=== PATIENT | male | born 1985 | race Caucasian/White ===

== ENCOUNTER 2019-07-22 03:17 | Emergency (ER) | payer SELFPAY ==
[2019-07-22 04:14] LABS: ALBUMIN 4.7 g/dL (3.5-5.0); ALKALINE PHOSPHATASE 61 U/L (38-126); ANION GAP 12.5 MEQ/L (5-15); BLOOD UREA NITROGEN 20 mg/dL (9-20); CHLORIDE 106 mmol/L (98-107); Calcium 9.2 mg/dL (8.4-10.2); Carbon Dioxide 27 mmol/L (22-30); Creatinine 1 0.89 mg/dL (0.66-1.25); Glucose 93 mg/dL (74-106); Potassium 3.9 mmol/L (3.5-5.1); SGOT/AST 31 U/L (17-59); SGPT/ALT 22 U/L (0-50); SODIUM 142 mmol/L (137-145); Total Protein 8.3 g/dL (6.3-8.2)
[2019-07-22 04:16] LABS: ACETAMINOPHEN < 10 ug/ml (10-30); ETHYL ALCOHOL < 10 mg/dL (0-10); SALICYLATE < 1.0 mg/dL (2-20)
[2019-07-22 04:19] LABS: Bacteria RARE /HPF (NEGATIVE); Mucus SLIGHT /HPF (NEGATIVE); WBC 0-2 /HPF (0-5)
[2019-07-22 04:20] LABS: Appearance CLEAR (CLEAR); Bilirubin NEGATIVE (NEGATIVE); Blood NEGATIVE Ery/ul (0-5); Glucose NEGATIVE (NEGATIVE); Ketones NEGATIVE (NEGATIVE); Leukocyte Esterase NEGATIVE (NEGATIVE); Nitrite NEGATIVE (NEGATIVE); Protein,Urine Dip NEGATIVE (Negative); Specific Gravity 1.025 (1.005-1.025); Urobilinogen NORMAL mg/dL (0-1)
[2019-07-22 04:22] LABS: Absolute Neutrophil Ct (ANC) 3.28 (1.4-6.9); BASOPHIL % 0.8 % (0.0-0.4); Basophil (Absolute #) 0.05 (0-0.4); Eosinophil (Absolute #) 0.12 (0-0.5); Hematocrit 46.1 % (42-50); Lymphocyte (Absolute #) 2.12 (1.0-4.6); Lymphocytes % 34.5 % (24.0-44.0); Mean Cell Volume 94.3 fl (78-100); Mean Corpuscular Hemoglobin 30.7 pg (26-32); Mean Corpuscular Hgb Concent. 32.5 g/dl (32-36); Mean Platelet Volume 10.5 fl (7.5-11.0); Monocyte (Absolute #) 0.57 (0.0-1.3); Monocytes % 9.3 % (0.0-12.0); Neutrophil % 53.4 % (36.0-66.0); Platelet Count 330 K/mm3 (150-450); Red Blood Count 4.89 M/mm3 (4.1-5.6); Red Cell Distribution Width 13.3 % (11.5-14.0); White Blood Count 6.1 K/mm3 (4.0-10.5)
--- NOTE | 2019-07-22 04:22 | ERPHSYRPT ---
- History of Present Illness Source: patient Exam Limitations: no limitations Patient Subjective Stated Complaint: . Triage Nursing Assessment: . Timing/Duration: today Severity of Symptoms-Max: moderate Severity of Symptoms-Current: mild Context related to: other Suicidal thoughts: other (Patient denies homicidal suicidal ideation.) Associated Symptoms: confused, hallucinating (Patient demonstrating visual and auditory hallucination.) Previous symptoms: no recent treatment <ANIYAH MOSCOSO - Last Filed: 07/22/19 05:21> <HARJINDER BANDA - Last Filed: 07/22/19 09:00> - History of Present Illness Time Seen by Provider: 07/22/19 03:30 Physician History: Patient is a 33-year-old male brought into our ED by police department. Patient was apparently found walking on the side of the road. Patient was questioned and fled from police. Sahil ensued. Patient was apprehended. Patient was arrested and brought to our ED for further evaluation. Patient unable to answer questions appropriately. Patient appears confused. No trauma. No fever. Patient denies chest pain. No shortness of breath. Symptoms are mild to moderate intensity. No specific worsening or improving factors. Patient voices no other complaints at this time. (ANIYAH MOSCOSO) Travel Risk - International Travel Have you traveled outside of the country in past 3 weeks: No Have you or anyone close to you been diagnosed with or: No Do your reside in a community with a known COVID-19 case?: Yes If Yes where:: [facility] - Coronavirus Screening Has patient experienced Coronavirus symptoms: No <ANIYAH MOSCOSO - Last Filed: 07/22/19 05:21> - Past Medical History Pertinent Past Medical History: (unknown) - Past Surgical History Past Surgical History: (unknown) - Social History Smoking Status: Unknown if ever smoked <ANIYAH MOSCOSO - Last Filed: 07/22/19 05:21> - Review of Systems Constitutional: No Symptoms, No Fever, No Chills Eyes: No Symptoms Ears, Nose, & Throat: No Symptoms Respiratory: No Symptoms, No Cough, No Dyspnea Cardiac: No Symptoms, No Chest Pain, No Edema, No Syncope Abdominal/Gastrointestinal: No Symptoms, No Abdominal Pain, No Nausea, No Vomiting, No Diarrhea Genitourinary Symptoms: No Symptoms, No Dysuria Musculoskeletal: No Symptoms, No Back Pain, No Neck Pain Skin: No Symptoms, No Rash Neurological: No Symptoms, No Dizziness, No Focal Weakness, No Sensory Changes Psychological: No Symptoms Endocrine: No Symptoms Hematologic/Lymphatic: No Symptoms Immunological/Allergic: No Symptoms All Other Systems: Reviewed and Negative <ANIYAH MOSCOSO Filed: 07/22/19 05:21> - Physical Exam General Appearance: no apparent distress Eyes, Ears, Nose, Throat Exam: normal ENT inspection, moist mucous membranes Neck Exam: normal inspection, non-tender, supple, No Brudzinski, No Kernig's, No meningismus, No lymphadenopathy (R) Respiratory Exam: normal breath sounds, lungs clear, No respiratory distress, No airway intact Cardiovascular Exam: regular rate/rhythm, normal heart sounds, normal peripheral pulses, No murmur, No friction rub, No edema Gastrointestinal/Abdominal Exam: soft, No tenderness, No distention Extremities Exam: normal inspection, normal range of motion, No evidence of injury, No edema Current Suicidality: denies suicide plan Neurological Exam: alert, green prize packer II-XII nml as tested, oriented x 3 Appearance: appropriate appearance (Patient is not wearing a shirt. He has long hair and appears disheveled. foul body odor.), denies illness, impaired insight, No appropriate insight Behavior/Eye Contact/Speech: alert & cooperative, No avoids eye contact Thoughts/Hallucinations: auditory hallucinations, flight of ideas, No normal thought pattern, No no apparent hallucination Skin Exam: normal color, warm, dry, No rash SpO2 Interpretation: normal SpO2: 100 O2 Delivery: Room Air <ANIYAH MOSCOSO Filed: 07/22/19 05:21> - Nursing Vital Signs Nursing Vital Signs: Initial Vital Signs Temperature 98.0 F 07/22/19 03:18 Pulse Rate 103 H 07/22/19 03:18 Respiratory Rate 18 07/22/19 03:18 Blood Pressure 137/89 07/22/19 03:18 O2 Sat by Pulse Oximetry 100 07/22/19 03:18 Pain Scale Pain Intensity 0 - Course Nursing assessment & vital signs reviewed: Yes EKG Interpreted by Me: RATE (73), Sinus Rhythm, NORMAL AXIS, NORMAL INTERVALS <ANIYAH MOSCOSO Filed: 07/22/19 05:21> Ordered Tests: Active Orders 24 hr Category Date Time Status EKG-ER Only STAT Care 07/22/19 03:23 Active ACETAMINOPHEN Stat Lab 07/22/19 03:49 Completed CBC W DIFF Stat Lab 07/22/19 03:49 Completed CMP Stat Lab 07/22/19 03:49 Completed ETHYL ALCOHOL Stat Lab 07/22/19 03:49 Completed SALICYLATE Stat Lab 07/22/19 03:49 Completed UA W/RFX UR CULTURE Stat Lab 07/22/19 03:54 Completed Urine Triage Profile Stat Lab 07/22/19 03:54 Completed Lab/Rad Data: Laboratory Result Diagrams 07/22/19 03:49 07/22/19 03:49 Laboratory Results 07/22/19 07/22/19 07/22/19 Range/Units 03:54 03:54 03:49 WBC (4.0-10.5) K/mm3 RBC (4.1-5.6) M/mm3 Hgb (12.5-18.0) gm/dl Hct (42-50) % MCV (78-100) fl MCH (26-32) pg MCHC (32-36) g/dl RDW (11.5-14.0) % Plt Count (150-450) K/mm3 MPV (7.5-11.0) fl Gran % (36.0-66.0) % Eos # (Auto) (0-0.5) Absolute Lymphs (auto) (1.0-4.6) Absolute Monos (auto) (0.0-1.3) Lymphocytes % (24.0-44.0) % Monocytes % (0.0-12.0) % Eosinophils % (0.00-5.0) % Basophils % (0.0-0.4) % Absolute Granulocytes (1.4-6.9) Basophils # (0-0.4) Sodium 142 (137-145) mmol/L Potassium 3.9 (3.5-5.1) mmol/L Chloride 106 (98-107) mmol/L Carbon Dioxide 27 (22-30) mmol/L Anion Gap 12.5 (5-15) MEQ/L BUN 20 (9-20) mg/dL Creatinine 0.89 (0.66-1.25) mg/dL Estimated GFR > 60.0 ML/MIN Glucose 93 (74-106) mg/dL Calcium 9.2 (8.4-10.2) mg/dL Total Bilirubin 0.50 (0.2-1.3) mg/dL AST 31 (17-59) U/L ALT 22 (0-50) U/L Alkaline Phosphatase 61 (38-126) U/L Serum Total Protein 8.3 H (6.3-8.2) g/dL Albumin 4.7 (3.5-5.0) g/dL Urine Color YELLOW (YELLOW) Urine Appearance CLEAR (CLEAR) Urine pH 6.0 (5-6) Ur Specific [place] 1.025 (1.005-1.025) Urine Protein NEGATIVE (Negative) Urine Ketones NEGATIVE (NEGATIVE) Urine Blood NEGATIVE (0-5) Ino/ul Urine Nitrite NEGATIVE (NEGATIVE) Urine Bilirubin NEGATIVE (NEGATIVE) Urine Urobilinogen NORMAL (0-1) mg/dL Ur Leukocyte Esterase NEGATIVE (NEGATIVE) Urine WBC (Auto) 0-2 (0-5) /HPF Urine RBC (Auto) NONE (0-2) /HPF U Epithel Cells (Auto) NONE (FEW) /HPF Urine Bacteria (Auto) RARE (NEGATIVE) /HPF Urine Mucus (Auto) SLIGHT (NEGATIVE) /HPF Urine Culture Reflexed NO (NO) Urine Glucose NEGATIVE (NEGATIVE) mg/dL Salicylates < 1.0 L (2-20) mg/dL Urine Opiates Level NEGATIVE (NEGATIVE) Ur Methadone NEGATIVE (NEGATIVE) Acetaminophen < 10 L (10-30) ug/ml Urine Barbiturates NEGATIVE (NEGATIVE) Ur Phencyclidine (PCP) NEGATIVE (NEGATIVE) Urine Amphetamine POSITIVE (NEGATIVE) U Benzodiazepine Level NEGATIVE (NEGATIVE) Urine Cocaine NEGATIVE (NEGATIVE) Urine Marijuana (THC) NEGATIVE (NEGATIVE) Ethyl Alcohol < 10 (0-10) mg/dL 07/22/19 Range/Units 03:49 WBC 6.1 (4.0-10.5) K/mm3 RBC 4.89 (4.1-5.6) M/mm3 Hgb 15.0 (12.5-18.0) gm/dl Hct 46.1 (42-50) % MCV 94.3 (78-100) fl MCH 30.7 (26-32) pg MCHC 32.5 (32-36) g/dl RDW 13.3 (11.5-14.0) % Plt Count 330 (150-450) K/mm3 MPV 10.5 (7.5-11.0) fl Gran % 53.4 (36.0-66.0) % Eos # (Auto) 0.12 (0-0.5) Absolute Lymphs (auto) 2.12 (1.0-4.6) Absolute Monos (auto) 0.57 (0.0-1.3) Lymphocytes % 34.5 (24.0-44.0) % Monocytes % 9.3 (0.0-12.0) % Eosinophils % 2.0 (0.00-5.0) % Basophils % 0.8 (0.0-0.4) % Absolute Granulocytes 3.28 (1.4-6.9) Basophils # 0.05 (0-0.4) Sodium (137-145) mmol/L Potassium (3.5-5.1) mmol/L Chloride (98-107) mmol/L Carbon Dioxide (22-30) mmol/L Anion Gap (5-15) MEQ/L BUN (9-20) mg/dL Creatinine (0.66-1.25) mg/dL Estimated GFR ML/MIN Glucose (74-106) mg/dL Calcium (8.4-10.2) mg/dL Total Bilirubin (0.2-1.3) mg/dL AST (17-59) U/L ALT (0-50) U/L Alkaline Phosphatase (38-126) U/L Serum Total Protein (6.3-8.2) g/dL Albumin (3.5-5.0) g/dL Urine Color (YELLOW) Urine Appearance (CLEAR) Urine pH (5-6) Ur Specific [place] (1.005-1.025) Urine Protein (Negative) Urine Ketones (NEGATIVE) Urine Blood (0-5) Ino/ul Urine Nitrite (NEGATIVE) Urine Bilirubin (NEGATIVE) Urine Urobilinogen (0-1) mg/dL Ur Leukocyte Esterase (NEGATIVE) Urine WBC (Auto) (0-5) /HPF Urine RBC (Auto) (0-2) /HPF U Epithel Cells (Auto) (FEW) /HPF Urine Bacteria (Auto) (NEGATIVE) /HPF Urine Mucus (Auto) (NEGATIVE) /HPF Urine Culture Reflexed (NO) Urine Glucose (NEGATIVE) mg/dL Salicylates (2-20) mg/dL Urine Opiates Level (NEGATIVE) Ur Methadone (NEGATIVE) Acetaminophen (10-30) ug/ml Urine Barbiturates (NEGATIVE) Ur Phencyclidine (PCP) (NEGATIVE) Urine Amphetamine (NEGATIVE) U Benzodiazepine Level (NEGATIVE) Urine Cocaine (NEGATIVE) Urine Marijuana (THC) (NEGATIVE) Ethyl Alcohol (0-10) mg/dL - Progress Progress: improved <ANIYAH MOSCOSO - Last Filed: 07/22/19 05:21> <HARJINDER BANDA - Last Filed: 07/22/19 09:00> - Progress Progress Note: Patient reassessed. No change in physical exam. Patient has positive for amphetamine. Upon further evaluation it is obvious that patient is not capable of caring for himself. Police report the patient was displaying lack of awareness of his environment which also placed patient at risk. Patient was not aware that the police car was up on him and continue to walk without regard to potential threat that was upon him. Patient appears to be experiencing an acute psychosis. Patient is a danger to himself. Patient does not have family to support him or to observe him for outpatient follow-up. We will EMILY patient for formal psychiatric evaluation. 07/22/19 05:21 (ANIYAH MOSCOSO) 07/22/19 08:58 Dr. Schmitt has accepted the patient for direct admission to [facility]. He is not requiring a tele-health or [id number] evaluation. (HARJINDER BANDA) <ANIYAH MOSCOSO - Last Filed: 07/22/19 05:21> - Departure Departure Disposition: Transfer Critical Care Time: No <HARJINDER BANDA - Last Filed: 07/22/19 09:00> - Departure Clinical Impression: Delirium, Self-harming behavior, Alteration in self-care ability Condition: Stable Referrals: DOCTOR,NO FAMILY [Primary Care Provider] -
[2019-07-22 04:30] LABS: Barbiturate,Urine NEGATIVE (NEGATIVE); Benzodiazepine,Urine NEGATIVE (NEGATIVE); Cocaine,Urine NEGATIVE (NEGATIVE); Methadone,Urine NEGATIVE (NEGATIVE); Opiate,Urine NEGATIVE (NEGATIVE); PCP,Urine NEGATIVE (NEGATIVE); THC,Urine NEGATIVE (NEGATIVE)
[2019-07-22 04:47] LABS: Amphetamine,Urine POSITIVE (NEGATIVE)
[2019-07-22 09:06] VITALS: BP 127/77; PULSE 66; O2SAT 100
== END 2019-07-22 09:38 | disposition short-term general hospital (02) ==
LOC: ED 03:17
DX: R41.0 Disorientation, unspecified (principal); Z91.5 Personal history of self-harm; Z74.1 Need for assistance with personal care
CPT/HCPCS: 36415; 80053; 80307; 81001; 85025; 93005; 99285; G0481; G0480